=== PATIENT | male | born 1955 | race Caucasian/White ===

== ENCOUNTER 2022-06-21 07:32 | Emergency (ER) | payer OTHER, SELFPAY ==
--- NOTE | ~2022-06-21 | XR_ITS ---
EXAMINATION: XR chest 2V 06/21/2022 08:12 INDICATION: Left lower posterior rib pain PROCEDURE: 2 view chest COMPARISON: No prior studies for comparison. FINDINGS: The lungs are clear. The cardiomediastinal silhouette is within normal limits. There are no pleural effusions. There is no pneumothorax suspected. IMPRESSION: 1: NO ACUTE CARDIOPULMONARY DISEASE. Reviewed, dictated and finalized at location B.
--- NOTE | ~2022-06-21 | XR_ITS ---
XR thoracic spine 3V 06/21/2022 08:12 Indication: Back pain after lifting injury Procedure: 4 views thoracic spine Comparison: No prior studies for comparison. Findings: No fracture, subluxation or dislocation. There is normal thoracic kyphosis. There is margin al osteophyte formation at multiple levels ventrally. No acute fracture or traumatic malalignment. Buckner rrounding osseous structures are unremarkable. Impression: 1: No acute abnormality of the thoracic spine. Reviewed, dictated and finalized at location B. Impression: 1: No acute abnormality of the thoracic spine.
--- NOTE | ~2022-06-21 | XR_ITS ---
XR lumbar spine 2-3V 06/21/2022 08:12 Indication: Low back pain after lifting injury Procedure: 3 views lumbar spine Comparison: No prior studies for comparison. Findings: There is disc narrowing at all lumbar levels, most advanced at L4-5 and L5-S1. There is fac et hypertrophy at L3-4 through L5-S1 with grade 1 degenerative spondylolisthesis at L3-4. No acute fr acture or traumatic malalignment. There is atherosclerosis of the aorta. There are marginal osteophyt es at L2-3 and L3-4. Sacral foramen are symmetric. Pedicles are intact. Impression: 1: No acute abnormality of the lumbar spine. 2: Moderate-severe lumbar spondylosis. Reviewed, dictated and finalized at location B. Impression: 1: No acute abnormality of the lumbar spine. 2: Moderate-severe lumbar spondylosis.
[2022-06-21 07:28] VITALS: RESP 18; TEMP 36.6; O2SAT 96
--- NOTE | 2022-06-21 07:50 | ED.GENADULT ---
HPI - General Adult General Chief complaint: Back Pain/Injury Stated complaint: back strain Time Seen by Provider: 06/21/22 07:33 History of Present Illness HPI narrative: 67-year-old male presenting to the emergency department for evaluation of right-sided low back pain. Patient states he was at work and was attempting to lift a box up over his head. Patient states that he then had onset of right-sided back pain. Patient states the pain was spasming for about 5 minutes and then begin to improve. Patient presented to the emergency department by ambulance. Patient denies any associated numbness or weakness. Review of Systems Review of Systems: CONSTITUTIONAL: Denies fever, chills, or sweats. EYES: Denies visual changes, redness, or discharge. ENT: Denies rhinorrhea, congestion, sore throat, or otalgia. CARDIOVASCULAR: Denies chest pain, palpitations, or edema. RESPIRATORY: Denies cough or dyspnea. GASTROINTESTINAL: Denies abdominal pain, nausea, vomiting, or diarrhea. GENITOURINARY: Denies dysuria or hematuria. SKIN: Denies rash or itching. MUSCULOSKELETAL: See HPI NEUROLOGIC: Denies headache, numbness, or weakness. Exam Narrative: APPEARANCE: Well appearing, no pain, no distress, well-nourished. HEAD: normocephalic, atraumatic. EYES: PERRLA/EOMI, conjunctivae clear. NOSE: Normal no drainage NECK: Supple. No adenopathy, no masses. RESPIRATORY: Airway patent, respirations nonlabored. Clear to auscultation bilaterally, no rales, rhonchi, wheezing. CARDIOVASCULAR: Regular rate and rhythm without murmurs rubs or gallops. ABDOMINAL: Soft, nontender, nondistended, normal bowel sounds MUSCULOSKELETAL: Moves all extremities. Strength/ROM intact, No edema, No calf tenderness. Some tenderness to right lateral lower back and tenderness to right posterior ribs. No ecchymosis, no crepitus. NEURO: Alert. Cranial nerves II through XII intact. Grossly intact SKIN: Warm, dry. Normal Color Course Vital Signs Vital signs: Vital Signs Temperature 98 F 06/21/22 07:28 Respiratory Rate 18 06/21/22 07:28 Pulse Oximetry 96 06/21/22 07:28 Oxygen Delivery Room Air 06/21/22 07:28 Temperature 98 F 06/21/22 07:28 Respiratory Rate 18 06/21/22 07:28 Pulse Oximetry 96 06/21/22 07:28 Oxygen Delivery Room Air 06/21/22 07:28 Medical Decision Making Vital Signs Vital Signs: Vital Signs Temperature 98 F 06/21/22 07:28 Respiratory Rate 18 06/21/22 07:28 Pulse Oximetry 96 06/21/22 07:28 Oxygen Delivery Room Air 06/21/22 07:28 Temperature 98 F 06/21/22 07:28 Respiratory Rate 18 06/21/22 07:28 Pulse Oximetry 96 06/21/22 07:28 Oxygen Delivery Room Air 06/21/22 07:28 Imaging Data Radiologist's impression: Impressions Chest X-Ray 06/21/22 08:24 IMPRESSION: 1: NO ACUTE CARDIOPULMONARY DISEASE. Lumbar Spine X-Ray 06/21/22 08:25 Impression: 1: No acute abnormality of the lumbar spine. 2: Moderate-severe lumbar spondylosis. Thoracic Spine X-Ray 06/21/22 08:28 Impression: 1: No acute abnormality of the thoracic spine. Discharge Plan Discharge Clinical Impression: Rib pain on right side, Back pain Patient Disposition: Home, Self-Care Condition: Stable Instructions: Antibiotic Form, Back Pain (ED) Additional Instructions: Tylenol and ibuprofen for pain control. Flexeril for muscle spasm. Have close follow-up with your primary care physician. Prescriptions: New cyclobenzaprine 10 mg tablet 10 mg PO BID PRN (Reason: muscle spasm) Qty: 14 0RF
== END 2022-06-21 08:57 | disposition home or self-care (01) ==
PROVIDERS: Emergency Provider Emergency Medicine
DX: S39.92XA Unspecified injury of lower back, initial encounter (principal); R07.81 Pleurodynia; M47.816 Spondylosis without myelopathy or radiculopathy, lumbar region; X50.0XXA Overexertion from strenuous movement or load, initial encounter
CPT/HCPCS: 71046; 72072; 72100; 99284